=== PATIENT | female | born 1965 ===

== ENCOUNTER → 2017-06-07 | Outpatient (CLI) | payer OTHER ==
--- NOTE | 2017-06-09 08:41 | CPEEG ---
[f rep st] ELECTROENCEPHALOGRAM 24-HOUR EEG DATES OF STUDY: 06/07/2017 to 06/08/2017 INTERPRETATION: This 24-hour ambulatory EEG recording is normal. There were no potentially epileptogenic abnormalities present during the awake or sleep recordings. The patient provided diary, did not report any symptoms during the ambulatory recording. REPORT: This 24-hour ambulatory EEG recording contains 9-10 Hz alpha activity to the posterior head regions. The background activity was normal and symmetric. There was no abnormal activation at rest. The patient became drowsy and fell into sustained sleep during the recording. There was no abnormal activation during drowsiness, sleep, or during times of arousal. The patient provided diary, did not report any symptoms during the study. Only exhibit display representative samples of wakefulness, sleep, and patient provided symptoms were reviewed with this study. /[id number]/[id number]
== END ==
LOC: FCPNEURO 14:54
PROVIDERS: ATTEND Psychiatry & Neurology Neurology
DX: Z85.3 Personal history of malignant neoplasm of breast (principal); Z79.890 Hormone replacement therapy